=== PATIENT | male | born 1960 | race Caucasian/White ===

== ENCOUNTER → 2023-12-07 07:13 | Outpatient (REF) | payer BC, SELFPAY | LOC: RAD 07:13 | PROVIDERS: ATTENDING PHYSICIAN Family Medicine | DX: I77.1 Stricture of artery (principal) | CPT/HCPCS: 93930 ==

== ENCOUNTER → 2024-01-14 15:06 | Outpatient (REF) | payer BC, SELFPAY | LOC: RAD 15:06 | PROVIDERS: ATTENDING PHYSICIAN Surgery Vascular Surgery; FAMILY PHYSICIAN Family Medicine | DX: R60.0 Localized edema (principal) | CPT/HCPCS: 71275; 93971; Q9967 ==